=== PATIENT | male | born 1965 | race Caucasian/White ===

== ENCOUNTER 2018-06-19 17:31 | Emergency (ER) | payer SELFPAY ==
[~2018-06-19] VITALS: Ht 165.1 cm; Wt 92.1 kg
[2018-06-19 18:27] VITALS: Ht 165.1 cm; Wt 92.1 kg
[2018-06-19 21:56] VITALS: BP 179/89
== END 2018-06-19 21:56 | disposition home or self-care (01) ==
LOC: ED 17:31
DX: S39.012A Strain of muscle, fascia and tendon of lower back, initial encounter (principal); X58.XXXA Exposure to other specified factors, initial encounter; Y93.89 Activity, other specified; Y92.89 Other specified places as the place of occurrence of the external cause; Y99.8 Other external cause status
CPT/HCPCS: 82962; J1885